=== PATIENT | male | born 1970 | race Caucasian/White ===

== ENCOUNTER 2020-09-23 14:02 | Emergency (ER) | payer OTHER, SELFPAY ==
--- NOTE | ~2020-09-23 | XR_ITS ---
EXAMINATION: XR ribs RT 2V EXAM DATE: 09/23/2020 15:35 INDICATION: Right lateral rib pain s/p carnival ride 1 week ago. TECHNIQUE: Frontal projection of the upper right ribs, frontal projection of the lower right ribs, ob lique projection of the right ribs for interpretation. There is no prior study for comparison. FINDINGS: There is nondisplaced right 8th rib fracture identified posterolaterally. There is no soft tissue abnormality seen. IMPRESSION: Acute nondisplaced right 8th rib fracture. Reviewed, dictated and finalized at location A.
[2020-09-23 14:35] VITALS: BP 166/111; PULSE 69; RESP 18; TEMP 36.7; O2SAT 100
--- NOTE | 2020-09-23 14:48 | ED.GENADULT ---
HPI - General Adult General Chief complaint: Abdominal Pain Stated complaint: Rt side pain History of Present Illness HPI narrative: This is a 50-year-old male that presented to urgent care with complaints of left rib pain status post trauma. According to patient approximately 1 week ago he was on a carnival ride and injured his left flank back area slammed up against the side of the right. Since then he has been experiencing right side rib pain. According to patient he sneezed yesterday in heard a crack and a pop to his rib area. Patient notes that he has been wrapping his weights with Jass wrap which has helped with his pain. The patient denies SOB, CP, palpitation, extremity numbness, lightheadedness, dizziness, constipation, diarrhea, chills, or fever. Patient is able to move all extremities. Does experience pain when he turns his head side. Patient notes that he has a history of a fractured toe and his pain is similar to that. Related Data Allergies Allergy/AdvReac Type Severity Reaction Status Date / Time No Known Allergies Allergy Verified 09/23/20 14:26 Review of Systems Review of Systems: Narrative: A 14 organ system Review of Systems was performed and pertinent positives included in the HPI, otherwise remaining ROS is negative. All systems reviewed & are unremarkable except as noted in HPI and below [facility] [place] Family History Family History (Updated 09/23/20 @ 14:50 by MONIE Garland) Other Family history non-contributory Social History Social History Gender identity (if verbalized by the patient): Male Exam Narrative: Exam Narrative: GENERAL: This is a well-nourished, well-developed patient, in no apparent distress. HEAD: normocephalic, atraumatic. EYES: PERRL. Sclera clear/white. Vision is grossly intact. EARS: External ears normal, auditory canals clear and without drainage, TMs normal without perforation. Hearing grossly intact. NOSE: External nose normal with no obvious nasal discharge, nares without redness, no rhinorrhea. THROAT: Mucous membranes moist, posterior pharynx clear. NECK: Neck supple, non-tender without lymphadenopathy, masses or thyromegaly. CARDIOVASCULAR: Regular rate and rhythm without murmurs, gallops, or rubs. RESPIRATORY: Clear to auscultation. Breath sounds equal bilaterally. No wheezes, rales, or rhonchi. GASTROINTESTINAL: Abdomen soft, non-tender, nondistended. Bowel sounds are active. No hepato-splenomegaly, or palpable masses. No guarding. SKIN: warm, intact with no suspicious lesions or rash, good texture and turgor. NEURO: awake, alert, and oriented to person, place and time. There were no obvious focal neurologic abnormalities. Steady gait EXTREMITIES: Normal range of motion. No edema. No calf tenderness. Negative Homans sign bilaterally. BACK: Nontender without deformity or crepitance. No flank tenderness. Course Course Emergency Course: Patient will discharge home instructed to follow-up with the orthopedic surgeon with pain medication and muscle relaxants Vital Signs Vital signs: Vital Signs Temperature 98.1 F 09/23/20 14:35 Pulse Rate 09/23/20 14:35 Respiratory Rate 09/23/20 14:35 Blood Pressure 166/111 H 09/23/20 14:35 Pulse Oximetry 100 09/23/20 14:35 Temperature 98.1 F 09/23/20 14:35 Pulse Rate 09/23/20 14:35 Respiratory Rate 18 09/23/20 14:35 Blood Pressure 166/111 H 09/23/20 14:35 Pulse Oximetry 100 09/23/20 14:35 Medical Decision Making Differential Diagnosis Differential Diagnosis: Rib fracture, rib dislocation, strain or sprain Vital Signs Vital Signs: Vital Signs Temperature 98.1 F 09/23/20 14:35 Pulse Rate 09/23/20 14:35 Respiratory Rate 09/23/20 14:35 Blood Pressure 166/111 H 09/23/20 14:35 Pulse Oximetry 100 09/23/20 14:35 Temperature 98.1 F 09/23/20 14:35 Pulse Rate 09/23/20 14:35 Respiratory Rate 09/23/20 14:35 Blood Pressure 166/111 H 09/23/20 14
== END 2020-09-23 16:00 | disposition home or self-care (01) ==
PROVIDERS: Emergency Provider Nurse Practitioner
DX: S22.32XA Fracture of one rib, left side, initial encounter for closed fracture (principal); W22.8XXA Striking against or struck by other objects, initial encounter
CPT/HCPCS: 71100; 99203; G0463

== ENCOUNTER 2020-11-25 13:08 | Emergency (ER) | payer OTHER, SELFPAY ==
--- NOTE | 2020-11-25 13:15 | ED.GENADULT ---
HPI - General Adult General Chief complaint: Recheck/Abnormal Lab/Rx Stated complaint: RX Refills Time Seen by Provider: 11/25/20 13:35 Source: patient and RN notes reviewed Mode of arrival: ambulatory Limitations: no limitations History of Present Illness HPI narrative: 50-year-old male presents with concern for medication refill. Reports he is new to the area, does not have a primary care doctor. Reports he potentially has an appointment at the beginning of December. Reports he has not yet run out of any of his medications but is close to running out. Reports he needs refills on his albuterol inhaler and nebulizer solution and blood pressure medications. He denies any current symptoms or complaints. MD complaint: Medication refill Related Data Allergies Allergy/AdvReac Type Severity Reaction Status Date / Time No Known Allergies Allergy Verified 11/25/20 13:28 Review of Systems Review of Systems: CONSTITUTIONAL: Denies malaise, chills, sweats, or fever. CARDIOVASCULAR: Denies chest pain, palpitations, or edema. RESPIRATORY: Denies cough or dyspnea. MUSCULOSKELETAL: Denies back pain, joint pain, or myalgia. NEUROLOGIC: Denies numbness, weakness, or headache. All systems reviewed & are unremarkable except as noted in HPI and below [facility] Family History Family History (Updated 09/23/20 @ 14:50 by MONIE Garland) Other Family history non-contributory Social History Social History Gender identity (if verbalized by the patient): Male Comments At time of signature, agree with nursing past medical, surgical, social and family history. There is no relevant family history pertinent to the presenting complaint Exam Narrative: GENERAL: Well-appearing, well-nourished, and in no acute distress. HEAD: Normocephalic, atraumatic. EYES: PERRLA, sclera clear ENT: Mucous membranes moist. NECK: Supple. No lymphadenopathy. CHEST: No respiratory distress. Clear to auscultation. No bony deformities, no asymmetry. Speaks in full sentences. HEART: Regular rate and rhythm. No murmur heard. Normal peripheral pulses. SKIN: Warm, dry, no visible rash. NEURO: Alert and oriented x3. PSYCH: Normal mood and affect Course Course Emergency Course: Patient is aware of diagnosis, understands and agrees to treatment plan. Anticipatory guidance given. Patient agrees to follow-up as directed and is aware of reasons to seek care at the emergency department. Portions of this record may have been created with voice recognition software Vital Signs Vital signs: Vital Signs Temperature 98.2 F 11/25/20 13:17 Pulse Rate 86 11/25/20 13:17 Respiratory Rate 16 11/25/20 13:17 Blood Pressure 151/97 H 11/25/20 13:17 Pulse Oximetry 99 11/25/20 13:17 Temperature 98.2 F 11/25/20 13:17 Pulse Rate 86 11/25/20 13:17 Respiratory Rate 16 11/25/20 13:17 Blood Pressure 151/97 H 11/25/20 13:17 Pulse Oximetry 99 11/25/20 13:17 Reviewed. Patient has history of hypertension Medical Decision Making MDM Narrative Medical decision making narrative: Exam findings show no acute concerns or changes; patient is non-toxic appearing and is in no distress. Patient is appropriate for outpatient treatment and follow-up. Vital Signs Vital Signs: Vital Signs Temperature 98.2 F 11/25/20 13:17 Pulse Rate 86 11/25/20 13:17 Respiratory Rate 16 11/25/20 13:17 Blood Pressure 151/97 H 11/25/20 13:17 Pulse Oximetry 99 11/25/20 13:17 Temperature 98.2 F 11/25/20 13:17 Pulse Rate 86 11/25/20 13:17 Respiratory Rate 16 11/25/20 13:17 Blood Pressure 151/97 H 11/25/20 13:17 Pulse Oximetry 99 11/25/20 13:17 Critical Care Time Critical Care Time Critical Care Time: No Discharge Plan Discharge Clinical Impression: Encounter for medication refill Patient Disposition: Home, Self-Care Condition: Stable Instructions: General Patient Instructions Additional Instructions: 1) Please fo
[2020-11-25 13:17] VITALS: BP 151/97; PULSE 86; RESP 16; TEMP 36.8; O2SAT 99
== END 2020-11-25 13:55 | disposition home or self-care (01) ==
PROVIDERS: Emergency Provider Nurse Practitioner
DX: Z76.0 Encounter for issue of repeat prescription (principal); I10 Essential (primary) hypertension; J44.9 Chronic obstructive pulmonary disease, unspecified
CPT/HCPCS: 99211; G0463